=== PATIENT | male | born 1970 | race Caucasian/White ===

== ENCOUNTER 2021-10-30 21:59 | Emergency (ER) | payer SELFPAY ==
[~2021-10-30] VITALS: Ht 172.7 cm; Wt 86.2 kg
--- NOTE | 2021-10-30 22:01 | NUR ---
DR. LEE EVALUTING PT ON SCOOTER
--- NOTE | 2021-10-30 22:03 | NUR ---
PT TRANSFERRED TO BED #6
[2021-10-30 22:04] VITALS: BP 128/76
[2021-10-30] MEDS ORDERED: diphenhydrAMINE 50 MG/ML VIAL IM ONE (22:05)
[2021-10-30] MEDS ORDERED: HALOPERIDOL IM 5 MG/ML VIAL IM ONE (22:05)
[2021-10-30] MEDS ORDERED: LORazepam 2 MG/ML VIAL IM ONE (22:05)
--- NOTE | 2021-10-30 22:19 | NUR ---
LAB AT BEDSIDE
--- NOTE | 2021-10-30 22:39 | NUR ---
PT BELONGINGS P/U BY SECURITY
[2021-10-30 22:47] LABS: BASOPHILS % (AUTO) 0.7 % (0.0-2.0); EOSINOPHILS # (AUTO) 0.1 K/uL (0-0.4); EOSINOPHILS % (AUTO) 0.9 % (0.0-4.0); HEMATOCRIT 43.6 % (36-52); HEMOGLOBIN 14.6 g/dL (12.0-18.0); LYMPHOCYTES # (AUTO) 2.8 K/uL (2.0-11.5); LYMPHOCYTES % (AUTO) 44.5 % (20.5-51.1); MEAN CORPUSCULAR HEMOGLOBIN 32 pg (27-31); MEAN CORPUSCULAR HGB CONC 34 g/dL (33-37); MEAN CORPUSCULAR VOLUME 96.6 fL (80-94); MONOCYTES # (AUTO) 0.5 K/uL (0.8-1.0); MONOCYTES % (AUTO) 8.3 % (1.7-9.3); NEUTROPHILS # (AUTO) 2.9 K/uL (1.8-7.7); NEUTROPHILS % (AUTO) 45.6 % (42.2-75.2); PLATELET COUNT (AUTO) 151 K/uL (140-450); RED BLOOD CELL COUNT(AUTO) 4.52 MIL/uL (4.20-6.10); RED CELL DISTRIBUTION WIDTH 14.8 % (11.6-13.7); WHITE BLOOD COUNT (AUTO) 6.3 K/uL (4.8-10.8)
[2021-10-30 23:21] LABS: ANION GAP 16.9 (8-16); CHLORIDE 107 mmol/L (98-107); CREATININE 1.1 mg/dL (0.6-1.3); GFR ARICAN-AMERICAN 91 mL/min (>90); GLUCOSE 99 mg/dL (74-106); POTASSIUM 3.9 mmol/L (3.5-5.1); SODIUM SERUM 144 mmol/L (136-145); UREA NITROGEN, BLOOD 17 mg/dL (7-18)
[2021-10-30 23:38] LABS: ALBUMIN 3.9 g/dL (3.4-5.0); ASPARTATE AMINOTRANSFERASE 27 U/L (15-37); TOTAL BILIRUBIN 0.3 mg/dL (0.0-1.0)
[2021-10-30 23:47] LABS: ACETAMINOPHEN < 0.5 ug/ml (10-30); SALICYLATE < 2.8 mg/dL (2.8-20.0)
--- NOTE | 2021-10-31 04:36 | NUR ---
PT AWAKE EATING IN BED HOB UP. COVID SWABS COLLECTED AND WALKED TO LAB
--- NOTE | 2021-10-31 05:08 | NUR ---
Rosana carrillo in [facility] - 10/31/21 at 0509 by YSABEL RECIEVED REPORT FROM LEIA PARRY
--- NOTE | 2021-10-31 05:10 | NUR ---
RECIEVED REPORT FROM LEIA PARRY
--- NOTE | 2021-10-31 05:48 | NUR ---
PT SLEEPING QUIETLY IN BED.
--- NOTE | 2021-10-31 07:18 | NUR ---
REPORT GIVEN TO DANYELLE DONOHUE. TRANSFER OF CARE AT THIS TIME.
--- NOTE | 2021-10-31 08:01 | NUR ---
PT BEING EVALUATED FOR 5150 HOLD BY VIA [facility] APPT.
--- NOTE | 2021-10-31 08:10 | NUR ---
SPOKE WITH POST TELESYCH EVALUATION. STATES PATIENT DOES NOT MEET 5150 CRITERIA. AWARE.
[2021-10-31 08:36] VITALS: BP 110/70
--- NOTE | 2021-10-31 08:38 | NUR ---
Patient discharged with v/s stable. Written and verbal after care instructions given and explained. Patient verbalized understanding. Ambulatory with steady gait. All questions addressed prior to discharge. Patient was provided with resources for alchohol substance abuse and mental health.
== END 2021-10-31 08:38 | disposition home or self-care (01) ==
LOC: MED 21:59
DX: F10.129 Alcohol abuse with intoxication, unspecified (principal); Z20.822 Contact with and (suspected) exposure to COVID-19; R44.1 Visual hallucinations; Y90.8 Blood alcohol level of 240 mg/100 ml or more; Z88.6 Allergy status to analgesic agent; Z88.8 Allergy status to other drugs, medicaments and biological substances
CPT/HCPCS: 36415; 80053; 83605; 85025; 87426; 87635; 96372; 99284; C9803; G0480; G0482; J1200; J1630; J2060